=== PATIENT | male | born 1965 | race Caucasian/White ===

== ENCOUNTER 2016-10-19 05:59 | Day surgery (SDC) | payer OTHER ==
[2016-10-16 09:34] VITALS: BMI 27.8
[2016-10-19] MEDS ORDERED: ePHEDrine SULFATE 50 MG/1 ML AMPULE ONE (09:53)
[2016-10-19] MEDS ORDERED: SUCCINYLCHOLINE CHLORIDE 200 MG/10 ML VIAL ONE (09:54)
[2016-10-19] MEDS ORDERED: MIDAZOLAM HCL 2 MG/2 ML SINGLE DOSE VIAL ONE (09:54)
[2016-10-19] MEDS ORDERED: PROPOFOL 20 ML ONE ×2 (09:54→11:34)
[2016-10-19] MEDS ORDERED: LIDOCAINE HCL 1%, 10 MG/ML (20ML VIAL) ONE (10:18)
[2016-10-19] MEDS ORDERED: ceFAZolin SODIUM 1 GM VIAL IVPB ONE (10:35)
[2016-10-19] MEDS ORDERED: LIDOCAINE HCL 1%, 10 MG/ML (20ML VIAL) IJ ONE (10:42)
[2016-10-19] MEDS ORDERED: LIDOCAINE HCL 1%, 10 MG/ML (20ML VIAL) NR ONE (10:42)
[2016-10-19] MEDS ORDERED: BUPIVACAINE HCL/PF 0.5% (5MG/ML) 10 ML VIAL IJ ONE ×2 (10:42)
[2016-10-19] MEDS ORDERED: oxyCODONE HCL 5 MG TABLET PO PRN (10:47)
[2016-10-19] MEDS ORDERED: ONDANSETRON 4 MG/2 ML VIAL IVPUSH PRN (10:47)
[2016-10-19] MEDS ORDERED: PROMETHAZINE HCL 25 MG/1 ML VIAL IVPUSH PRN (10:47)
[2016-10-19] MEDS ORDERED: DESFLURANE GAS 240 ML BOTTLE IH ONE (10:50)
--- NOTE | 2016-10-19 12:08 | OP ---
Operative Note - Note: Operative Date: 10/19/16 Pre-Operative Diagnosis: left inguinal hernia Operation: repair left inguinal hernia with mesh Findings: direct and indirect left inguinal hernia Post-Operative Diagnosis: Same as Pre-op Surgeon: Terry Hancock Screen Stretcher: Mona Lazo Anesthesia: General Specimens Removed: none Estimated Blood Loss (mls): 10
--- NOTE | 2016-10-19 12:12 | SURG ---
Surgery Chute Tender Note Chute Tender: Mona Lazo PA-C Date of Service: 10/19/16 Diagnosis: left inguinal hernia Procedure: repair left inguinal hernia with mesh I was present for the entirety of the operative procedure. For further detail, please refer to operative report. Visit type - Case Type Case Type: Scheduled Admission - Emergency Emergency Visit: No - New patient This patient is new to me today: Yes Date on this admission: 10/19/16 - Critical Care Critical Care patient: No
[2016-10-19 13:15] VITALS: TEMP 97.9
[2016-10-19 15:00] VITALS: BP 100/58; PULSE 57
--- NOTE | 2016-10-20 11:18 | OP ---
DATE OF OPERATION: 10/19/2016 PREOPERATIVE DIAGNOSIS: Left inguinal hernia. POSTOPERATIVE DIAGNOSIS: Left inguinal hernia. PROCEDURE: Repair of left inguinal hernia with mesh. SURGEON: Terry Hancock MD ENVIRONMENTAL SERVICES ASSISTANT: Mona Lazo PA-C ANESTHESIA: General. OPERATIVE FINDINGS: There was an indirect left inguinal hernia and a weak, attenuated, florid inguinal canal consistent with a direct hernia. The rest of the findings were unremarkable. PROCEDURE: The patient was placed on the operating room table in supine position, and after the induction of general endotracheal anesthesia, the patient's left groin was prepped with ChloraPrep and draped in sterile fashion. A timeout was taken. A left groin incision was made, after the area was infiltrated with 1% Xylocaine and 0.5% Marcaine in equal concentration. Incision was made with the scalpel and taken down through skin and subcutaneous tissue. Dyana fascia was divided. The external oblique was identified and divided proximally and distally in the direction of its fibers and through the external ring. The cord structures and nerve were elevated to the level of the pubic tubercle and a Sukumar drain placed around them for traction and identification purposes. An indirect sac was identified within the substance of the cord and it was bluntly dissected up to the internal ring where it was reduced into the peritoneal cavity. The sac was empty. Next, the hernia was repaired by fashioning a piece of Parietex ProGrip mesh into the floor of the inguinal canal. It was anchored at the pubic tubercle shelving edge and conjoined tendon, respectively, with interrupted 2-0 Prolene. A keyhole was created for the cord structures and the tails with the mesh border above the level of the internal ring and anchored there with interrupted 2-0 Prolene. Hemostasis was checked for and noted to be good and then the wound was copiously irrigated with sterile saline. Hemostasis was verified again, and then the cord structures and nerve were returned to their normal anatomic position, and the external oblique closed over them recreating the external ring using continuous 2-0 Vicryl. Dyana fascia was reapproximated with interrupted 2-0 Vicryl, the deep dermis with interrupted 3-0 Vicryl, and the skin edges with 4-0 Biosyn in a subcuticular continuous fashion. Steri-Strips, fluffs, and dry, sterile dressings were placed, and the procedure terminated at this point. The patient aroused from general anesthesia, and transferred to the postanesthesia care unit, in stable condition, awake, and alert. ESTIMATED BLOOD LOSS: 10 mL. REPLACEMENTS: Crystalloid. DRAINS: None. SPECIMENS: None. I, Terry Hancock, was physically present in the operating room from the time the patient was placed on the operating room table until he was transferred to the postanesthesia care unit in my accompaniment. MD PITER Matt/[id number]
== END 2016-10-19 14:15 | disposition home or self-care (01) ==
LOC: JASU-SURG 05:59
PROVIDERS: ATTEND Surgery
PROC: 0YU60JZ Supplement Left Inguinal Region with Synthetic Substitute, Open Approach (ICD-10-PCS; principal; 2016-10-19 10:00)
DX: K40.90 Unilateral inguinal hernia, without obstruction or gangrene, not specified as recurrent (principal)
CPT/HCPCS: 94760